=== PATIENT | female | born 1985 | race Hispanic/Latino ===

== ENCOUNTER 2024-06-16 13:01 | Emergency (ER) | payer BC ==
[~2024-06-16] VITALS: Ht 165.1 cm; Wt 90.7 kg
[~2024-06-16 13:01] MED LIST: PNV91TAB3 PO
--- NOTE | 2024-06-16 13:19 | ERN ---
ED Note History of Present Illness Stated Complaint: CUT THUMB Chief Complaint: Laceration/Avulsion Time Seen by MD: 13:03 Dictation: PATIENT IS A 38-YEAR-OLD FEMALE COMING IN FROM A LOCAL BUSINESS WHERE SHE HAS A LACERATION TO THE DORSUM OF THE LEFT THUMB WITH A BOX CUTTER1 HOUR PRIOR TO ARRIVAL. NO ACTIVE BLEEDING AT THIS TIME, LAST TETANUS SHOT IS UNKNOWN AND SHE STATES SHE IS NOT A DIABETIC. NEUROVASCULAR CMS INTACT TO THUMB. Allergies: Coded Allergies: No Known Drug Allergies (Unverified Allergy, Unknown, 02/02/16) Home Meds Active Scripts Ibuprofen (Ibuprofen 800 mg Tab) 800 Mg Tab, 800 MG PO Q8H PRN for fever or pain, #30 TAB 0 Refills Prov:SUDHA WHITE PHARMACY CARE COORDINATOR 06/16/24 Reported Medications Pnv95/Ferrous Fumarate/FA ( Caplet) 1 Each Tablet, 1 EACH PO DAILY, TAB 02/03/16 Past Medical History History: Not Applicable RN Note Reviewed/Agreed w/PFSH: Yes Review of System Dictation CONSTITUTIONAL: Negative except for HPI HEAD/FACE: Negative except for HPI EENT: Negative except for HPI RESPIRATORY: Negative except for HPI GASTROINTESTINAL/ABDOMINAL: Negative except for HPI GENITOURINARY: Negative except for HPI MUSCULOSKELETAL: Negative except for HPI laceration to the base left thumb INTEGUMENTARY: Negative except for HPI NEUROLOGICAL/PSYCH: Negative except for HPI HEMATOLOGIC/LYMPHATIC: Negative except for HPI All Systems Negative, Except as noted above. 13 point review of systems assessed and all negative except for above. Initial Vital Sign VS Vital Signs Date Time Temp Pulse Resp B/P (MAP) Pulse Ox O2 Delivery O2 Flow Rate FiO2 06/16/24 13:16 98.4 88 16 115/89 99 Room Air 0 06/16/24 15:32 21 Physical Exam Dictation Vital Signs reviewed General Appearance: Alert, oriented x 3, no acute distress, well developed, nourished. Head and Face: non-traumatic. Eyes: PERRL, pink conjunctivas, eyelid no trauma, anterior chamber with arcus senilis. Ears: Pinnas intact and no signs of trauma or erythema ear canals clear and no discharge TM no erythema Nose: No discharge, no bleeding. Oropharynx: Mouth normal, tongue pink, pharynx clear,no erythema, tonsils no exudates, no abscesses noted, mucous membrane moist Neck: Supple, non-tender, no thyromegaly, no masses, no JVD, no bruits Breast:Deferred Chest:No tenderness, no crepitus, no paradoxical movement, no retractions Lungs:Clear, well-ventilated, symmetric, no rales, no wheezing, no rhonchi, no stridor, good breath sounds bilaterally Heart: Regular rate, regular rhythm, no murmur, no gallops Vascular: no peripheral edema, Abdomen: Soft, positive bowel sounds, nondistended, no guarding, nontender, no rebound, no masses no hepatomegaly, no splenomegaly, no Henderson's sign, no hernias. Rectal: Deferred Genital: Deferred Neurological: Normal speech, motor function intact, sensory function intact Musculoskeletal: Neck nontender, full range of motion, back nontender, full range of motion, Extremities: nontender, full range of motion Skin: Color pink, dr2 cm laceration to dorsal left thumb. Neurovascular CMS Lymphatic: Deferred Results (Laboratory/Radiology) Labs Reviewed?: Yes ED Course ED Course Orders Procedure Category Date Status Time Acetaminophen 500mg PHA 06/16/24 Complete Tab (Tylenol 500mg T 13:30 Tetanus,Diphtheria PHA 06/16/24 Complete Tox [Adult] (Diphther 13:30 Neomy PHA 06/16/24 Complete Sulf/Bacitra/Polymyxin 13:30 Lidocaine Hcl 1% 20ml PHA 06/16/24 Complete Vial (Lidocaine Hc 13:30 Current Medications Medications (Trade) Dose Ordered Sig/Yamil Route PRN Reason Start Time Stop Time Status Last Admin Dose Admin Acetaminophen (TYLenol 500MG TAB) 1,000 mg ONCE ONCE PO 06/16/24 13:30 06/16/24 13:31 DC 06/16/24 15:17 Lidocaine HCl (Lidocaine HCl 1% 20ml Vial) 5 ml ONCE ONCE INJ 06/16/24 13:30 06/16/24 13:31 DC 06/16/24 15:37 Neomycin/ Polymyxin/ Bacitracin (Triple Antibiotic Ointment) 1 appl ONCE ONCE TP 06/16/24 13:30 06/16/24 13:31 DC 06/16/24 15:21 Tetanus/ Diphtheria Toxoids Adsorbed (DiphthERIA-teTANUS TOXOID [ADULT]/ DECAVAC) 0.5 ml ONCE ONCE IM 06/16/24 13:30 06/16/24 13:31 DC 06/16/24 15:18 Vital Signs Date Time Temp Pulse Resp B/P (MAP) Pulse Ox O2 Delivery O2 Flow Rate FiO2 06/16/24 15:32 98.4 89 17 117/86 99 Room Air* 0 21 06/16/24 13:16 98.4 88 16 115/89 99 Room Air 0 1542/no labs or imaging indicated. Laceration was repaired and tetanus was updated and pain meds given. Wound care instructions to patient Medical Decision Making MDM Medical discharge making based on tetanus update and laceration repair. Laceration was repaired Tetanus was updated Patient tolerated well neurovascular CMS intact left thumb Procedure Procedure Dictation: , procedure explained to patient she agreed to proceed 2 Cm laceration to dorsal left thumb cleansed with wound cleanser Used to mL 1% lidocaine plain for local anesthetic Laceration closed with one running 4-0 Prolene suture Single-layer closure Patient tolerated well DX & DISP Disposition: Discharge Departure Impression: Primary Impression: Laceration of left thumb Condition: Stable Scripts Ibuprofen (Ibuprofen 800 mg Tab) 800 Mg Tab 800 MG PO Q8H PRN for fever or pain, #30 TAB 0 Refills Prov: SUDHA WHITE PHARMACY CARE COORDINATOR 06/16/24 Additional Instructions: Follow-up with primary care provider in 1 to 2 days. Take medications as directed here in the emergency room. Okay to continue home medications unless otherwise discussed during your visit in the emergency room today. Return to your nearest emergency room if symptoms worsen or if there is no improvement. Call 911 if you need immediate assistance. Take Tylenol or Motrin [id number] as needed and if no contraindications are present. Increase oral hydration. A wound culture or urine culture was ordered here in the emergency room department please follow-up with primary care provider and advise them to get repeat ports from our facility. If you had any Marcio wrap/splints that were applied here, please do not remove them until you see your primary care or specialty. Keep laceration repair clean and dry. No work with left hand until cleared by your doctor. Triple antibiotic ointment/[id number] times a day for five days to laceration repair. Sutures out in 10 days. Referrals: SELF,REFERRAL (PCP) Time of Disposition: 15:41 I have reviewed the case, and I agree with, Diagnosis and Plan I performed a substantive portion of the visit. I have reviewed and personally made and approve the management plan that is documented in the notes by myself with ASIA/resident. I acknowledged full responsibility for the patient's management plan. SUDHA WHITE NP Jun 16, 2024 13:19 ROMAIN MENDEZ DO Jun 16, 2024 18:47
[2024-06-16] MEDS: acetaMINOPHEN 500 MG TABLET PO ONE (15:17)
[2024-06-16] MEDS: teTANUS/diphthERIA TOXOID [ADULT] 0.5 ML VIAL IM ONE (15:18)
[2024-06-16] MEDS: NEOMY SULF/BACITRA/POLYMYXIN B 1 EACH PACKET TP ONE (15:21)
[2024-06-16 15:32] VITALS: BP 117/86; PULSE 89; RESP 17; TEMP 98.4; O2SAT 99
[2024-06-16] MEDS: LIDOCAINE HCL 1% 20 ML VIAL INJ ONE (15:37)
[2024-06-16] MEDS ORDERED: IBUP-2077 PO (15:42)
== END 2024-06-16 15:37 | disposition home or self-care (01) ==
LOC: EDH 13:01
DX: S61.012A Laceration without foreign body of left thumb without damage to nail, initial encounter (principal); W26.8XXA Contact with other sharp object(s), not elsewhere classified, initial encounter; Y93.89 Activity, other specified; Y92.89 Other specified places as the place of occurrence of the external cause; Y99.8 Other external cause status
CPT/HCPCS: 12001; 90471; 90714; 99284

== ENCOUNTER 2025-01-06 19:32 | Emergency (ER) | payer BC ==
[~2025-01-06] VITALS: Ht 165.1 cm; Wt 85.3 kg
[~2025-01-06 19:32] MED LIST changes: +IBUP-2077 PO
[2025-01-06] MEDS ORDERED: AMOX1TAB16 PO (20:52)
--- NOTE | 2025-01-06 20:53 | ERN ---
ED Note History of Present Illness Stated Complaint: C/O LEFT SWELLING WITH PUS TO BREAST Chief Complaint: Breast Problem Time Seen by MD: 19:35 Time Seen by Midlevel: 19:35 Dictation: The patient is a 39-year-old female with a history of galactorrhea , tubal ligation who presents to the emergency department with complaints of left nipple pain, swelling and discharge onset two days ago. Patient denies any trauma, denies any fevers. Patient reports she has a history of galactorrhea for about three years which she has been following up with her primary doctor for. Allergies: Coded Allergies: No Known Drug Allergies (Unverified Allergy, Unknown, 02/02/16) Home Meds Active Scripts Amoxicillin/Potassium Clav (Amox Tr-K Clv 875-125 mg Tab) 875 Mg-125 Mg Tablet, 1 EACH PO BID for 7 Days, #14 TAB 0 Refills Prov:HIEN DERAS WOOLEN SUITING SHRINKER 01/06/25 Ibuprofen (Ibuprofen 800 mg Tab) 800 Mg Tab, 800 MG PO Q8H PRN for fever or pain, #30 TAB 0 Refills Prov:SUDHA WHITE GROCERY DELIVERER 06/16/24 Reported Medications Pnv95/Ferrous Fumarate/FA ( Caplet) 1 Each Tablet, 1 EACH PO DAILY, TAB 02/03/16 Past Medical History Past Medical History: No Pertinent History Surgical History: Other Surgical History Other: TUBAL LIGATION History: Not Applicable LMP: Dec 22, 2024 RN Note Reviewed/Agreed w/PFSH: Yes Review of System Dictation Constitutional: Negative for fever,chills, and weight loss Eyes: Negative for injury, pain,redness, and discharge ENT: Negative for injury,pain or swelling Cardiovascular: Negative for chest pain, palpitations, and edema Respiratory: Negative for shortness of breath, cough, and wheezing, Abdomen/GI: Negative for abdominal pain, nausea, vomiting, diarrhea, and constipation Back: Negative for injury and pain : Negative for injury, bleeding and discharge MS/Extremity: Negative for injury and deformity Skin: Negative for rash, and discoloration positive for left nipple pain Neuro: Negative for headache, weakness, numbness, tingling, and seizure Psych: Negative for suicide ideation, homicidal ideation, and hallucinations Initial Vital Sign VS Vital Signs Date Time Temp Pulse Resp B/P (MAP) Pulse Ox O2 Delivery O2 Flow Rate FiO2 01/06/25 19:35 98.4 94 20 136/82 99 Room Air 01/06/25 20:40 0 21 Physical Exam Dictation Vital Signs reviewed General Appearance: Alert, oriented x 3, no acute distress, well developed, nourished. Head and Face: non-traumatic. Eyes: PERRL, pink conjunctivas, eyelid no trauma, anterior chamber with arcus senilis. Ears: Pinnas intact and no signs of trauma or erythema ear canals clear and no discharge TM no erythema Nose: No discharge, no bleeding. Oropharynx: Mouth normal, tongue pink. pharynx clear,no erythema, tonsils no exudates, no abscesses noted, mucous membrane moist Neck: Supple, non-tender, no thyromegaly, no masses, no JVD, no bruits Breast: Left nipple was mild swelling, erythema, no obvious drainage, no masses noted to bilateral breasts Chest:No tenderness, no crepitus, no paradoxical movement, no retractions Lungs:Clear, well-ventilated, symmetric, no rales, no wheezing, no rhonchi, no stridor, good breath sounds bilaterally Heart: Regular rate, regular rhythm, no murmur, no gallops Vascular: no peripheral edema, Abdomen: Soft, positive bowel sounds, nondistended, no guarding, nontender, no rebound, no masses no hepatomegaly, no splenomegaly, no Henderson's sign, no hernias. Rectal: Deferred Genital: Deferred Neurological: Normal speech, motor function intact, sensory function intact Musculoskeletal: Neck nontender, full range of motion, back nontender, full range of motion, Extremities: nontender, full range of motion Skin: Color pink, dry, no turgor, no rash, no lacerations, no abrasions, no contusions. Lymphatic: Deferred Results (Laboratory/Radiology) Labs Reviewed?: Yes ED Course ED Course Orders Procedure Category Date Status Time Ceftriaxone 1g Vial PHA 01/06/25 Complete (Rocephine 1g Inj) 21:00 Current Medications Medications (Trade) Dose Ordered Sig/Yamil Route PRN Reason Start Time Stop Time Status Last Admin Dose Admin Ceftriaxone Sodium (ROCEphine 1G INJ) 1 gm ONCE ONCE IM 01/06/25 21:00 01/06/25 21:01 DC 01/06/25 20:55 Vital Signs Date Time Temp Pulse Resp B/P (MAP) Pulse Ox O2 Delivery O2 Flow Rate FiO2 01/06/25 20:40 98.2 89 18 133/76 99 Room Air* 0 21 01/06/25 19:35 98.4 94 20 136/82 99 Room Air Medical Decision Making MDM The patient is a 39-year-old female with a history of galactorrhea who presents to the emergency department with complaints of left nipple pain, swelling and discharge onset two days ago. Patient denies any trauma, denies any fevers. P ronak reports she has a history of galactorrhea for about three years which she has been following up with her primary doctor for. Patient with mild erythema and swelling to left nipple. No obvious drainage. No masses noted. On physical exam patient is in no acute distress, nontoxic appearance, stable vital signs. We will discharge patient on antibiotics and instructed to follow up with PCP. Differential diagnosis: Cellulitis, abscess, ascites Need for hospitalization: Patient does not meet criteria for hospitalization. There are no social concerns with this patient. DX & DISP Disposition: Discharge Departure Impression: Primary Impression: Nipple infection Condition: Stable Scripts Amoxicillin/Potassium Clav (Amox Tr-K Clv 875-125 mg Tab) 875 Mg-125 Mg Tablet 1 EACH PO BID for 7 Days, #14 TAB 0 Refills Prov: HIEN DERAS WOOLEN SUITING SHRINKER 01/06/25 Additional Instructions: Please follow up with your primary doctor in 1-2 days. Take your medications as prescribed. If anything worsens please return to ER. FOLLOW-UP WITH PRIMARY CARE PROVIDER IN 1 TO 2 DAYS. TAKE MEDICATIONS DIRECTED HERE IN THE EMERGENCY ROOM. OKAY TO CONTINUE HOME MEDICATIONS UNLESS OTHERWISE DISCUSSED DURING YOUR VISIT IN THE EMERGENCY ROOM TODAY. RETURN TO [facility] EMERGENCY ROOM IF SYMPTOMS WORSEN OR IF THERE IS NO IMPROVEMENT. CALL 911 IF YOU NEED IMMEDIATE ASSISTANCE. TAKE TYLENOL [id number] NEEDED AND IF NO CONTRAINDICATIONS ARE PRESENT. INCREASE ORAL HYDRATION. A WOUND CULTURE OR URINE CULTURE WAS ORDERED HERE IN THE EMERGENCY ROOM DEPARTMENT PLEASE FOLLOW-UP WITH PRIMARY CARE PROVIDER AND ADVISE THEM TO GET REPEAT PORTS FROM OUR FACILITY. IF YOU HAD ANY THERESE WRAP/SPLINTS THAT WERE APPLIED HERE, PLEASE DO NOT REMOVE THEM UNTIL YOU SEE YOUR PRIMARY CARE OR SPECIALTY. Referrals: SELF,REFERRAL (PCP) Time of Disposition: 20:49 I have examined patient, & reviewed all documents, & agreed W/ the Diagnosis, and Plan ATTESTATION BY PHYSICIAN I PERFORMED THE SUBSTANTIVE PORTION OF THE VISIT. I HAVE REVIEWED AND PERSONALLY MADE AND APPROVED THE MANAGEMENT PLAN THAT IS DOCUMENTED IN THE NOTE BY MYSELF FOR THE A PP. I ACKNOWLEDGED FOR RESPONSIBILITY FOR THE PATIENT'S MANAGEMENT PLAN. HIEN DERAS [facility] Jan 06, 2025 20:53
[2025-01-06 21:21] VITALS: BP 128/73; PULSE 82; RESP 18; TEMP 98; O2SAT 99
== END 2025-01-06 21:23 | disposition home or self-care (01) ==
LOC: EDH 19:32
DX: N61.0 Mastitis without abscess (principal); Z98.51 Tubal ligation status; Z79.899 Other long term (current) drug therapy
CPT/HCPCS: 99284; 96372; J0696